=== PATIENT | male | born 1990 | race Caucasian/White ===

== ENCOUNTER 2023-11-08 09:43 | Outpatient (CLI) | payer MEDICAID, SELFPAY | END 2023-11-08 09:44 | disposition home or self-care (01) | PROVIDERS: PCP Physician Assistant Medical; Visit Provider Physician Assistant Medical | DX: R53.83 Other fatigue (principal) | CPT/HCPCS: 80053; 82607; 82728; 84403; 84443 ==

== ENCOUNTER 2024-02-05 20:26 | Outpatient (CLI) | payer MEDICAID, SELFPAY ==
--- NOTE | 2024-02-19 09:29 | W.PM.SLEEP ---
Sleep Study Details Details Interpreting Provider: Maggie Date of Sleep Study: 02/05/24 Sleep Study Details: STUDY TYPE:? Hospital-based attended ? BMI:? 31.1 ORDERING PROVIDER:Lila Sevilla INDICATION:? Concerns about sleep apnea ? SLEEP SUMMARY:? Total sleep time 414 minutes RESPIRATORY SUMMARY:? Mean oxygen awake 95 asleep 94, minimum 74, 6.9 minutes oxygen between 80 and 88%, 0.8 minutes oxygen between 70 and 79% AHI 20.7, supine AHI 24.1, nonsupine AHI 9.4 Supine REM AHI 44.1 PERIODIC LIMB MOVEMENTS OF SLEEP:? Index 10.4, index with arousal 0.3 CARDIAC:? Heart rate awake 89, asleep 76. No arrhythmias noted IMPRESSION:? Moderate obstructive sleep apnea with supine position dependency and significant desaturations RECOMMENDATION: Treatment options include CPAP AutoSet, dental appliance and/or airway expansion surgery.
== END 2024-02-05 20:27 | disposition home or self-care (01) ==
PROVIDERS: PCP Physician Assistant Medical; Visit Provider Physician Assistant Medical
DX: G47.33 Obstructive sleep apnea (adult) (pediatric) (principal)
CPT/HCPCS: 95810